=== PATIENT | female | born 1940 | race Caucasian/White ===

== ENCOUNTER 2016-08-14 14:12 | Emergency (ER) | payer MEDICARE, OTHER ==
[2016-08-14 14:27] VITALS: BP 144/70
[2016-08-14] MEDS ORDERED: Sodium Chloride 0.9% 5 ML Syringe FLUSH PRN (14:56)
--- NOTE | 2016-08-14 15:12 | EDM.PDOC ---
ED HPI GI/ABDOMINAL - General Chief Complaint: Abdominal Pain Stated Complaint: ABD PAIN Time Seen by Provider: 08/14/16 14:34 Source of Information: Reports: Patient History Limitations: Reports: No limitations - History of Present Illness INITIAL COMMENTS - FREE TEXT/NARRATIVE: PT SEEN IN CLINIC TODAY FOR CONSTIPATION. HAD ABD XRAYS PERFORMED AND FOUND TO HAVE AIR IN BILIARY SYSTEM. CT RECOMMENDED BY RADIOLOGY. PT DENIES CP, SOB, N/V , OR FEVER. Symptom Onset Date: 08/10/16 Timing/Duration: Reports: Day(s): Location: generalized Quality: Reports: fullness Severity: mild Associated Symptoms (-Female): Reports: constipation. Denies: chest pain, back pain, diarrhea, bloody stools, fever/chills, nausea/vomiting - Related Data Allergies/ADRs: Allergies Allergy/AdvReac Type Severity Reaction Status Date / Time No Known Allergies Allergy Verified 08/14/16 14:27 Home Meds: Home Meds Ca/D3/Mag#11/Zinc/Call Center Director/Leland/Bor [Caltrate 600+D Plus Tablet] 1 tab PO DAILY 09/01 [History] Lisinopril/Hydrochlorothiazide [Lisinopril-Hctz 20-12.5 mg Tab] 1 tab PO DAILY 09/01/13 [History] Multivitamin with Minerals [Multiple Vitamin] 1 tab PO DAILY 09/01/13 [History] Social & Family History - Tobacco Use Smoking Status *Q: Never Smoker Second Hand Smoke Exposure: Yes - Caffeine Use Caffeine Use: Reports: Coffee, Soda, Tea - Alcohol Use Days Per Week of Alcohol Use: 0 - Recreational Drug Use Recreational Drug Use: No ED ROS GENERAL - Review of Systems Review Of Systems: ROS reveals no pertinent complaints other than HPI. Constitutional: Reports: no symptoms HEENT: Reports: No symptoms Respiratory: Reports: No Symptoms Cardiovascular: Reports: No symptoms Endocrine: Reports: no symptoms GI/Abdominal: Reports: Abdominal pain, Constipation : Reports: no symptoms Musculoskeletal: Reports: no symptoms Skin: Reports: no symptoms Neurological: Reports: No Symptoms Psychiatric: Reports: No symptoms Hematologic/Lymphatic: Reports: no symptoms Immunologic: Reports: no symptoms ED EXAM, GI/ABD - Physical Exam Exam: See Below Exam Limited By: No limitations General Appearance: alert, WD/WN, no apparent distress Nose: normal inspection, normal mucosa, no blood Throat/Mouth: Normal inspection, Normal oropharynx, No airway compromise Head: atraumatic, normocephalic Neck: normal inspection Respiratory/Chest: no respiratory distress, lungs clear, normal breath sounds, no accessory muscle use, chest non-tender Cardiovascular: regular rate, rhythm, no murmur GI/Abdominal: normal bowel sounds, soft, no organomegaly, no distention, no abnormal bruit, no mass, tenderness (RUQ). No: distention, guarding, rebound, rigidity Back Exam: normal inspection, full range of motion. No: CVA tenderness (L), CVA tenderness (R) Extremities: normal inspection, no pedal edema, normal capillary refill Neurological: alert, oriented, normal cognition Psychiatric: normal affect, normal mood Skin Exam: Warm, Dry, Intact, Normal color, No rash Lymphatic: no adenopathy Course - Vital Signs Last Recorded V/S: Last Vital Signs Temp 99.3 F 08/14/16 14:24 Pulse 94 08/14/16 14:24 Resp 18 08/14/16 14:24 BP 144/70 H 08/14/16 14:24 Pulse Ox 95 08/14/16 14:24 - Orders/Labs/Meds Orders: Active Orders 24 hr Category Date Time Status Peripheral IV Care [RC] . DIRECTED Care 08/14/16 14:57 Active Abdomen Pelvis w Cont [CT] Stat Exams 08/14/16 14:52 Taken Sodium Chloride 0.9% [Normal Saline] Med 08/14/16 16:00 Active 50 ml FLUSH ASDIRECTED Sodium Chloride 0.9% [Syrex Flush] Med 08/14/16 14:56 Active 5 ml FLUSH Q8HR PRN Peripheral IV Insertion Adult [OM.PC] Routine Oth 08/14/16 14:56 Ordered Medication Orders Sodium Chloride (Syrex Flush) 5 ml FLUSH Q8HR PRN PRN Reason: Keep Vein Open Last Admin: 08/14/16 15:08 Dose: 5 ml Sodium Chloride (Normal Saline) 50 ml FLUSH ASDIRECTED [facility] Last Admin: 08/14/16 16:31 Dose: 50 ml Labs: Laboratory Tests 08/14/16 08/14/16 Range/Units 15:05 15:05 WBC 9.6 (5.0-10.0) 10^3/uL RBC 4.56 (3.80-5.50) 10^6/uL Hgb 13.2 (12.0-16.0) g/dL Hct 40.3 (37.0-47.0) % MCV 88.3 (82.0-92.0) fL MCH 28.9 (27.0-31.0) pg MCHC 32.7 (32.0-36.0) g/dL RDW 14.1 (11.5-14.5) % Plt Count 432 H (150-300) 10^3/uL MPV 7.6 (7.4-10.4) fL Neut % (Auto) 77.8 H (50.0-70.0) % Lymph % (Auto) 14.9 L (20.0-40.0) % [place] % (Auto) 5.6 (2.0-8.0) % Eos % (Auto) 1.0 (1.0-3.0) % Baso % (Auto) 0.7 (0.0-1.0) % Neut # (Auto) 7.5 H (2.5-7.0) 10^3/uL Lymph # (Auto) 1.4 (1.0-4.0) 10^3/uL [place] # (Auto) 0.5 (0.1-0.8) 10^3/uL Eos # (Auto) 0.1 (0.1-0.3) 10^3/uL Baso # (Auto) 0.1 (0.0-0.1) 10^3/uL Sodium 142 (136-145) mmol/L Potassium 4.1 (3.3-5.3) mmol/L Chloride 102 (98-115) mmol/L Carbon Dioxide 28.6 (21.0-32.0) mmol/L BUN 10 (6-25) mg/dL Creatinine 0.66 (0.51-1.17) mg/dL Est Cr Clr Drug Dosing 77.19 mL/min Estimated GFR (MDRD) > 60 mL/min Glucose 125 H (70-110) mg/dL Calcium 9.0 (8.7-10.3) mg/dL Total Bilirubin 0.7 (0.2-1.0) mg/dL AST 16 (15-37) U/L ALT 27 (12-78) U/L Alkaline Phosphatase 85 (46-116) IU/L Total Protein 8.1 (6.4-8.2) g/dL Albumin 3.13 (3.00-4.80) g/dL Amylase 65 (25-125) U/L Lipase 163 (73-393) U/L Meds: Medications Generic Name Dose Route Start Last Admin Trade Name Freemanuel PRN Reason Stop Dose Admin Sodium Chloride 5 ml 08/14/16 14:56 08/14/16 15:08 Syrex Flush FLUSH 5 ml Q8HR PRN Administration Keep Vein Open Sodium Chloride 50 ml 08/14/16 16:00 08/14/16 16:31 Normal Saline FLUSH 50 ml ASDIRECTED JESSICA Administration Discontinued Medications Generic Name Dose Route Start Last Admin Trade Name Freq PRN Reason Stop Dose Admin Iopamidol 75 ml 08/14/16 15:51 08/14/16 16:31 Isovue-300 (61%) IV 08/14/16 15:52 75 ml ONETIME ONE Administration - Radiology Interpretation Free Text/Narrative:: CT ABD/PELVIS NEGATIVE FOR ACUTE PROCESS CT Results Date: 08/14/16 - Re-Assessments/Exams Free Text/Narrative Re-Assessment/Exam: 08/14/16 17:14 PT AFEBRILE, NONTOXIC APPEARING, VSS, PAIN FREE. WILL SET UP CONSULT FOR GENERAL SURGERY TO ADDRESS HEMORRHOIDS Departure - Departure Time of Disposition: 17:15 Disposition: Home, Self-Care 01 Condition: good Clinical Impression: External hemorrhoid Instructions: Abdominal Pain, Adult, [id number], Constipation, Adult, Easy-to -Read Forms: ED Department Discharge Additional Instructions: FOLLOW UP AT CLINIC. SCHEDULE APPOINTMENT WITH GENERAL SURGERY FOR HEMORRHOID CONCERN - My Orders Last 24 Hours: My Active Orders 08/14/16 14:52 Abdomen Pelvis w Cont [CT] Stat 08/14/16 14:56 Sodium Chloride 0.9% [Syrex Flush] 5 ml FLUSH Q8HR PRN Peripheral IV Insertion Adult [OM.PC] Routine 08/14/16 14:57 Peripheral IV Care [RC] . DIRECTED 08/14/16 16:00 Sodium Chloride 0.9% [Normal Saline] 50 ml FLUSH ASDIRECTED - Assessment/Plan Last 24 Hours: My Active Orders 08/14/16 14:52 Abdomen Pelvis w Cont [CT] Stat 08/14/16 14:56 Sodium Chloride 0.9% [Syrex Flush] 5 ml FLUSH Q8HR PRN Peripheral IV Insertion Adult [OM.PC] Routine 08/14/16 14:57 Peripheral IV Care [RC] . DIRECTED 08/14/16 16:00 Sodium Chloride 0.9% [Normal Saline] 50 ml FLUSH ASDIRECTED Assessment:: HEMORRHOIDS / ABD PAIN Plan: F/U AT CLINIC SCHEDULED
[2016-08-14 15:39] LABS: CHLORIDE,CL 102 mmol/L (98-115); SODIUM,NA 142 mmol/L (136-145)
[2016-08-14] MEDS ORDERED: Iopamidol 612 MG/ML 75 ML Bottle IV ONE (15:51)
[2016-08-14] MEDS ORDERED: Sodium Chloride 0.9% 50 ML SDV FLUSH SCH (16:00)
== END 2016-08-14 17:35 | disposition home or self-care (01) ==
LOC: KA.ED 14:12
DX: K64.4 Residual hemorrhoidal skin tags (principal); Z79.899 Other long term (current) drug therapy
CPT/HCPCS: 74177; 80053; 82150; 83690; 85025; 99284; Q9967; 74020; 99282

== ENCOUNTER 2016-09-01 10:32 | Day surgery (SDC) | payer MEDICARE, OTHER ==
[~2016-09-01 10:32] MED LIST: Lactated Ringers 1,000 ML IV SCH; Midazolam 1 MG/ML 2 ML SDV ONE; Propofol 200 MG/20 ML SDV ONE; Sodium Chloride 0.9% 5 ML Syringe FLUSH PRN
[2016-09-01] MEDS ORDERED: Propofol 200 MG/20 ML SDV ONE (10:54)
[2016-09-01] MEDS ORDERED: Scopolamine 1.5 MG Transdermal Patch ONE (11:15)
--- NOTE | 2016-09-01 11:19 | PCM.PN ---
- General Info Date of Service: 09/01/16 - Review of Systems Systems Review Comment:: 75-year-old female with a history of colon polyps referred today for colonoscopy. Her last colonoscopy was 3 years ago. She has noticed some hemorrhoid problems recently but otherwise having no problems with her bowel function. She denies rectal bleeding. I discussed the proposed colonoscopy with the patient. She agrees to proceed accepting risks. There is been no recent significant change in her health status. - Patient Data Vitals - most recent: Last Vital Signs Temp 96.8 F 09/01/16 10:51 Pulse 82 09/01/16 10:51 Resp 20 09/01/16 10:51 BP 126/66 09/01/16 10:51 Pulse Ox 99 09/01/16 10:51 Weight - most recent: 90.718 kg Med Orders - Current: Current Medications Lactated Ringer's (Ringers, Lactated) 1,000 mls @ 50 mls/hr IV ASDIRECTED JESSICA Last Admin: 09/01/16 10:56 Dose: 50 mls/hr Sodium Chloride (Syrex Flush) 5 ml FLUSH Q8HR PRN PRN Reason: Keep Vein Open - Problem List Review Problem List Initiated/Reviewed/Updated: Yes - My Orders Last 24 Hours: My Active Orders 08/31/16 17:55 Resuscitation Status Routine 09/01/16 10:30 Patient to Empty Bladder [RC] ASDIRECTED Peripheral IV Care [RC] . DIRECTED Verify Patient Consent Obtain [RC] ASDIRECTED Lactated Ringers [Ringers, Lactated] 1,000 ml IV ASDIRECTED Sodium Chloride 0.9% [Syrex Flush] 5 ml FLUSH Q8HR PRN Peripheral IV Insertion Adult [OM.PC] Routine 09/01/16 Breakfast Nothing Per Oral Diet [DIET] - Assessment Assessment:: history of colon polyps - Plan Plan:: colonoscopy
[2016-09-01] MEDS ORDERED: Midazolam 1 MG/ML 2 ML SDV IV ONE (11:22)
[2016-09-01] MEDS ORDERED: Propofol 200 MG/20 ML SDV IV ONE (11:22)
[2016-09-01] MEDS ORDERED: Ondansetron 4 MG/2 ML SDV IV ONE (11:22)
[2016-09-01] MEDS ORDERED: Scopolamine 1.5 MG Transdermal Patch TOP ONE (11:22)
--- NOTE | 2016-09-01 12:09 | PCM.OPNOTE ---
- General Post-Op/Procedure Note Date of Surgery/Procedure: 09/01/16 Operative Procedure(s): Colonoscopy with Polypectomy Findings: Small Splenic Flexure Polyp Thrombosed External Hemorrhoid Pre Op Diagnosis: History of Colon Polyps Post-Op Diagnosis: Colon Polyp. Thrombosed Hemorrhoid Anesthesia Technique: MAC Primary Surgeon: Jay Solis Pathology: Splenic Flexure Polyp Output, Urine Amount: 0 EBL in mLs: 0 Complications: None Condition: Good
[2016-09-01 13:43] VITALS: BP 97/50
--- NOTE | 2016-09-01 17:18 | PROC ---
PROVIDER: Jay Solis MD PRE-PROCEDURE DIAGNOSIS: History of colon polyps. POST-PROCEDURE DIAGNOSIS: Colon polyp, thrombosed hemorrhoid. PROCEDURE PERFORMED: Colonoscopy with polypectomy. INDICATIONS FOR SURGERY: This 75-year-old female has a history of colon polyps and comes today for surveillance exam. She notes that she has had more prominent hemorrhoids over the last few days. FINDINGS: At the level of the splenic flexure, the patient has a 6 mm sessile polyp. The remainder of the colon appears unremarkable. She does have a moderate-sized thrombosed hemorrhoid on her left side. PROCEDURE: The patient was taken to the operating room, given intravenous sedation and with her in the left lateral decubitus position, digital rectal exam was performed showing no rectal masses, although the thrombosed hemorrhoid was identified on exam. The scope was then inserted into the rectum and retroflexed examination of the rectal canal was performed. The scope was then carefully advanced under direct visualization through the entire length of the colon until cecum was reached. Cecal acquisition was confirmed by noting the normal internal cecal anatomy including the appendiceal orifice and ileocecal valve. The light was also noted to transilluminate the abdominal wall in the right lower quadrant. After examining the cecum, the scope was slowly withdrawn sequentially re-examining the colonic segments. On withdrawal of the scope, the small above-described polyp was identified. This was removed with a cautery snare and retrieved into a polyp trap. With no evidence of complication, the exam was continued and after complete examination of the colon and rectum, the scope was removed and the patient was taken from the operating room in satisfactory condition. ESTIMATED BLOOD LOSS: 0. COMPLICATIONS: None. PROGNOSIS: Good. /[id number]/MODL
== END 2016-09-01 14:28 | disposition home or self-care (01) ==
LOC: KA.SDS 10:32
PROVIDERS: ATTEND Surgery
DX: D12.3 Benign neoplasm of transverse colon (principal); Z86.010 Personal history of colon polyps; K64.5 Perianal venous thrombosis
CPT/HCPCS: 00810; 45380; A9270; J2250; J2405; J2704; J7120; 88305

== ENCOUNTER 2019-09-12 08:24 | Day surgery (SDC) | payer MEDICARE, OTHER ==
[2019-09-12 08:05] LABS: CORONAVIRUS COVID-19 RAPID PCR NEGATIVE (NEGATIVE)
[~2019-09-12 08:24] MED LIST changes: +Ketamine 200 MG/20 ML MDV ONE; -Midazolam 1 MG/ML 2 ML SDV ONE; +Sodium Chloride 0.9% 10 ML Syringe FLUSH PRN; -Sodium Chloride 0.9% 5 ML Syringe FLUSH PRN
[2019-09-12] MEDS ORDERED: Ketamine 200 MG/20 ML MDV IV ONE (09:14)
[2019-09-12] MEDS ORDERED: Propofol 200 MG/20 ML SDV IV ONE (09:14)
--- NOTE | 2019-09-12 09:16 | PCM.PN ---
- General Info Date of Service: 09/12/19 - Review of Systems Systems Review Comment:: 78 y/o female with history of colon polyps and change in bowel habits with increased constipation here for colonoscopy. She states prep did not go well and she is unsure of satisfactory results. She is medically stable to proceed. Her recent H and P is reviewed and no significant changes noted. Risks discussed and she agrees to proceed. - Patient Data Vitals - Most Recent: Last Vital Signs Temp 97.1 F 09/12/19 07:00 Pulse 77 09/12/19 07:00 Resp 18 09/12/19 07:00 BP 153/71 H 09/12/19 07:00 Pulse Ox 97 09/12/19 07:00 Weight - Most Recent: 81.193 kg Lab Results Last 24 Hours: Laboratory Results - last 24 hr 09/12/19 Range/Units 07:18 SARS-CoV-2 RNA (RT-PCR) Negative (NEGATIVE) Med Orders - Current: Current Medications Lactated Ringer's (Ringers, Lactated) 1,000 mls @ 50 mls/hr IV ASDIRECTED JESSCIA Last Admin: 09/12/19 09:06 Dose: 50 mls/hr Sodium Chloride (Saline Flush) 10 ml FLUSH Q8HR PRN PRN Reason: keep vein open Sepsis Event Note - Focused Exam Vital Signs: Vital Signs Temp Pulse Resp BP Pulse Ox 09/12/19 07:00 97.1 F 77 18 153/71 H 97 Date Exam was Performed: 09/12/19 Time Exam was Performed: 09:10 - Problem List Review Problem List Initiated/Reviewed/Updated: Yes - My Orders Last 24 Hours: My Active Orders 09/12/19 07:00 Vital Signs [RC] PER UNIT ROUTINE 09/12/19 08:00 Peripheral IV Care [RC] . DIRECTED Lactated Ringers [Ringers, Lactated] 1,000 ml IV ASDIRECTED Sodium Chloride 0.9% [Saline Flush] 10 ml FLUSH Q8HR PRN Peripheral IV Insertion Adult [OM.PC] Routine 09/12/19 08:30 Patient to Empty Bladder [RC] ASDIRECTED 09/12/19 09:00 Verify Patient Consent Obtain [RC] ASDIRECTED 09/12/19 Breakfast Nothing Per Oral Diet [DIET] - Assessment Assessment:: History of colon polyps Change in Bowel Habits - Plan Plan:: Colonoscopy
--- NOTE | 2019-09-12 09:58 | PCM.OPNOTE ---
- General Post-Op/Procedure Note Date of Surgery/Procedure: 09/12/19 Operative Procedure(s): Colonoscopy Findings: Extensive Sigmoid Diverticulosis without acute inflammation Pre Op Diagnosis: History of colon polyps. Change in bowel habits Post-Op Diagnosis: Sigmoid Diverticulosis Anesthesia Technique: MAC Primary Surgeon: Jay Solis Pathology: none EBL in mLs: 0 Complications: None Condition: Good
[2019-09-12 10:37] VITALS: BP 154/67; PULSE 81
--- NOTE | 2019-09-12 14:06 | OR ---
DATE OF SURGERY: 09/12/2019 SURGEON: Jay Solis MD PREOPERATIVE DIAGNOSIS: Change in bowel habits, history of colon polyps. POSTOPERATIVE DIAGNOSIS: Sigmoid diverticulosis. OPERATION PERFORMED: Colonoscopy. INDICATIONS FOR SURGERY: This 78-year-old female has a history of colon polyps with her last colonoscopy being 3 years ago. She has also noted a change in her bowel pattern with increased constipation and she is referred for colonoscopy. FINDINGS: There is extensive diverticulosis of the sigmoid colon. This area does not appear to be acutely inflamed and no stricturing is noted. The remainder of the colon appears normal. DESCRIPTION OF PROCEDURE: The patient was taken to the operating room. She was given intravenous sedation and with her in the left lateral decubitus position, digital rectal exam was performed showing no rectal masses. The Olympus colonoscope was inserted into the rectum. Retroflexed examination of the rectal canal was performed. The scope was then carefully advanced under direct visualization through the entire length of the colon until cecum is reached. Cecal acquisition is confirmed by noting normal internal cecal anatomy including the appendiceal orifice and the ileocecal valve. The light was also noted to transilluminate the abdominal wall in the right lower quadrant. The colon was somewhat tortuous and to reach the cecum, hand pressure on the abdomen was required, but this was able to be safely accomplished. After examining the cecum, the scope was slowly withdrawn sequentially re-examining the colonic segments until the entire colon and rectum had been fully examined. The scope was removed and the patient was taken from the operating room in satisfactory condition. ESTIMATED BLOOD LOSS: Zero. COMPLICATIONS: None. PROGNOSIS: Good. /[id number]/MODL
== END 2019-09-12 11:42 | disposition home or self-care (01) ==
LOC: KA.SDS 08:24
PROVIDERS: ATTEND Surgery
DX: K57.30 Diverticulosis of large intestine without perforation or abscess without bleeding (principal); I10 Essential (primary) hypertension; K59.00 Constipation, unspecified; M25.561 Pain in right knee; M70.61 Trochanteric bursitis, right hip; M79.645 Pain in left finger(s); M25.512 Pain in left shoulder; M25.511 Pain in right shoulder; Z20.828 Contact with and (suspected) exposure to other viral communicable diseases; Z79.899 Other long term (current) drug therapy; Z86.010 Personal history of colon polyps; Z98.890 Other specified postprocedural states
CPT/HCPCS: 00811; J2704; J7120; U0002

== ENCOUNTER 2023-01-10 15:04 | Emergency (ER) | payer MEDICARE, OTHER ==
[2023-01-10 15:32] VITALS: BP 122/64; PULSE 87
[2023-01-10] MEDS: Lidocaine/Epineph/Tetracaine 3 ML Syringe TOP ONE (15:50)
[2023-01-10] MEDS: Bacitracin/Neomycin/Polymyxin B Oint 28.4 GM Tube TOP ONE (16:05)
[2023-01-10] MEDS: Bacitracin/Neomycin/Polymyxin B Oint 28.4 GM Tube ONE (17:43)
[2023-01-10] MEDS: Lidocaine/Epineph/Tetracaine 3 ML Syringe ONE (17:43)
== END 2023-01-10 16:30 | disposition home or self-care (01) ==
LOC: KA.ED 15:04
DX: S51.822A Laceration with foreign body of left forearm, initial encounter (principal); S80.01XA Contusion of right knee, initial encounter; S80.02XA Contusion of left knee, initial encounter; I10 Essential (primary) hypertension; Z79.899 Other long term (current) drug therapy; W18.30XA Fall on same level, unspecified, initial encounter; Y92.480 Sidewalk as the place of occurrence of the external cause
CPT/HCPCS: 12001; 99283; 99284; A9270-GY

== ENCOUNTER 2023-10-03 18:28 | Emergency (ER) | payer MEDICARE, OTHER ==
[2023-10-03] MEDS ORDERED: Sodium Chloride 0.9% 10 ML Syringe FLUSH PRN (18:42)
[2023-10-03 18:55] LABS: BASOPHILS ABSOLUTE AUTO 0.03 10^3/uL (0.00-0.10); BASOPHILS PERCENT AUTO 0.4 % (0.0-1.0); EOSINOPHILS ABSOLUTE AUTO 0.22 10^3/uL (0.10-0.30); EOSINOPHILS PERCENT AUTO 3.2 % (1.0-3.0); HEMATOCRIT 35.3 % (37.0-47.0); HEMOGLOBIN 11.5 g/dL (12.0-16.0); IMMATURE GRAN ABSOLUTE AUTO 0.02 10^3/uL (0.00-0.50); IMMATURE GRAN PERCENT AUTO 0.3 % (0.0-5.0); LYMPHOCYTES ABSOLUTE AUTO 1.14 10^3/uL (1.00-4.00); LYMPHOCYTES PERCENT AUTO 16.5 % (20.0-40.0); MEAN CORPUSCULAR HGB CONC 32.6 g/dL (32.0-36.0); MEAN CORPUSCULAR VOLUME 89.1 fL (82.0-92.0); MEAN PLATELET VOLUME 10.4 fL (7.4-10.4); MONOCYTES ABSOLUTE AUTO 0.73 10^3/uL (0.10-0.80); MONOCYTES PERCENT AUTO 10.5 % (2.0-8.0); NEUTROPHILS ABSOLUTE AUTO 4.79 10^3/uL (2.50-7.00); NEUTROPHILS PERCENT AUTO 69.1 % (50.0-70.0); PLATELET COUNT,PLT 205 10^3/uL (150-400); RED BLOOD CELL COUNT 3.96 10^6/uL (3.80-5.50); RED CELL DISTRIBUTION WIDTH 13.8 % (11.5-14.5); WHITE BLOOD CELL COUNT,WBC 6.93 10^3/uL (5.00-10.00)
[2023-10-03 19:10] VITALS: BP 156/91; PULSE 110
[2023-10-03 19:10] LABS: ALBUMIN 3.13 g/dL (3.40-5.00); ANION GAP 12.2 mmol/L (5-15); BILIRUBIN TOTAL 1.5 mg/dL (0.2-1.0); CALCIUM 8.7 mg/dL (8.7-10.3); CARBON DIOXIDE,CO2 29.9 mmol/L (21.0-32.0); CREATININE 0.79 mg/dL (0.51-1.17); EST CRCL DRUG DOSING (CG) 59.25 mL/min; POTASSIUM,K 3.1 mmol/L (3.5-5.1); PROTEIN TOTAL,TP 6.7 g/dL (6.4-8.2)
[2023-10-03 19:20] LABS: INR 0.9 (0.9-1.1); PROTHROMBIN TIME 9.9 SEC (9.3-12.2); PTT,PARTIAL THROMBOPLSTIN TIME 26.3 SEC (23.3-34.9)
== END 2023-10-03 19:46 ==
LOC: SUPCPDRO 18:28 → KA.ED 18:28
DX: S06.2X0A Diffuse traumatic brain injury without loss of consciousness, initial encounter (principal); I10 Essential (primary) hypertension; Z79.899 Other long term (current) drug therapy; W18.11XA Fall from or off toilet without subsequent striking against object, initial encounter; Y92.002 Bathroom of unspecified non-institutional (private) residence as the place of occurrence of the external cause; Y93.89 Activity, other specified
CPT/HCPCS: 36415; 70450; 80053; 82947; 84484; 85025; 85610; 85730; 93010; 99284; 99285